=== PATIENT | female | born 1990 | race African-American/Black ===

== ENCOUNTER 2019-09-01 15:01 | Emergency (ER) | payer SELFPAY ==
--- NOTE | ~2019-09-01 | CT_ITS ---
EXAMINATION: CT abdomen pelvis w con EXAM DATE: 09/01/2019 16:46 INDICATION: Right lower quadrant pain. TECHNIQUE: Spiral CT of the abdomen and pelvis was performed following intravenous injection of 100 m L Omnipaque 350. Axial, coronal and sagittal images were reviewed. The dose-length product (DLP) fo r this examination was 311.66 mGy-cm. The exposure was tailored according to patient size (auto mA e xposure control), and iterative reconstruction (ASIR) was used as additional dose reduction technique . There is no prior study for comparison. FINDINGS: The liver, spleen, adrenal glands and pancreas are unremarkable. There are cholecystectomy clips. Portal and splenic veins are patent. Kidneys enhance symmetrically. There is no hydronephr osis. The uterus and ovaries are unremarkable, no adnexal mass. The bladder is unremarkable. Ther e is no retroperitoneal or pelvic lymphadenopathy. Probable identification of a normal appendix. No pericecal inflammation. The stomach and small capri l are unremarkable. There is expected amount of colonic stool. No free intraperitoneal gas. The heart is normal in size. There are no pericardial or pleural effusions. The lung bases are unremark able. The bones are unremarkable. IMPRESSION: 1. No acute intra-abdominal findings. Reviewed, dictated and finalized at location A.
[2019-09-01 15:05] VITALS: BP 105/84; PULSE 65; RESP 16; TEMP 37.6; O2SAT 99
[2019-09-01 15:32] LABS: Basophils Percent Auto 0.2 % (0.2-1.2); Hematocrit 40.3 % (37.0-47.0); Hemoglobin 13.9 g/dL (12.0-15.0); Immature Granulocyte Absolute 0.04 K/mm3 (0.00-0.031); Immature Granulocyte Percent A 0.4 % (0-0.5); Lymphocytes Absolute Auto 0.72 K/mm3 (0.9-3.2); Lymphocytes Percent Auto 7.1 % (18.3-44.2); Mean Corpuscular HGB Conc 34.5 g/dl (32-36); Mean Corpuscular Hemoglobin 31.7 pg (26-34); Mean Corpuscular Volume 91.8 fl (80-100); Mean Platelet Volume 11.7 fl (7.4-10.4); Monocytes Absolute Auto 0.7 K/mm3 (0.1-0.6); Monocytes Percent Auto 7.3 % (2.6-8.5); Neutrophils Absolute Auto 8.6 K/mm3 (1.3-6.7); Platelet Count Result 194 k/mm3 (150-375); Red Blood Count 4.39 M/mm3 (4.2-5.4); Red Cell Distribution Width 12.9 % (11.5-14.5); White Blood Count 10.1 K/mm3 (4.5-10.0)
--- NOTE | 2019-09-01 15:32 | ED.GENADULT ---
HPI - General Adult General Chief complaint: Nausea/Vomiting/Diarrhea Stated complaint: N/V, dizzy, abd pain Time Seen by Provider: 09/01/19 15:04 Source: patient Mode of arrival: ambulatory Limitations: no limitations History of Present Illness HPI narrative: Patient is a 28-year-old female who presents to emergency department who notes nausea and vomiting for the last week patient has been to urgent care notes that she was tested for COVID-19 denies sick contacts notes vomiting diarrhea off and on was seen at a urgent care and given Zofran and notes she continues to have symptoms patient denies similar occurrence in the past notes generalized aching of the abdomen symptoms Related Data Allergies Allergy/AdvReac Type Severity Reaction Status Date / Time No Known Allergies Allergy Verified 09/01/19 15:10 Review of Systems Review of Systems: All systems reviewed & are unremarkable except as noted in HPI and below PMFSH Social History Social History (Updated 09/01/19 @ 15:33 by Manfred Buck PA-C) Smoking status: Never smoker Gender identity (if verbalized by the patient): Female Exam Narrative: Exam Narrative: GENERAL: Well-appearing, well-nourished, and in no acute distress. HEAD: Normocephalic, atraumatic. EYES: PERRLA and EOMI. ENT: Nares clear, no rhinorrhea or epistaxis. Mucous membranes moist. Oropharynx without tonsillar hypertrophy exudate or other lesions. CHEST: Clear to auscultation. No respiratory distress. No wheezes rales or rhonchi HEART: Regular rate and rhythm. No murmur heard. Normal peripheral pulses. ABDOMEN: Soft, generalized tenderness, nondistended EXTREMITIES: Normal range of motion. No edema. SKIN: Warm, dry, no rash. NEURO: No focal deficits. Alert and oriented x3. Cranial nerves II through XII grossly intact PSYCH: Normal mood and affect. Course Course Emergency Course: Patient in the room aware of case findings treatment plan diagnosis tolerating p.o. intake with improvement with medications and fluids Vital Signs Vital signs: Vital Signs Temperature 99.6 F 09/01/19 15:05 Pulse Rate 65 09/01/19 15:05 Respiratory Rate 16 09/01/19 15:05 Blood Pressure 105/84 09/01/19 15:05 Pulse Oximetry 99 09/01/19 15:05 Temperature 99.6 F 09/01/19 15:05 Pulse Rate 65 09/01/19 15:05 Respiratory Rate 16 09/01/19 15:05 Blood Pressure 105/84 09/01/19 15:05 Pulse Oximetry 99 09/01/19 15:05 Medical Decision Making MDM Narrative Medical decision making narrative: Patient in the room at this time in no distress aware of case findings treatment plan diagnosis feeling somewhat better with medications tolerating p.o. intake will be discharged home provided with reasons to return afebrile nontoxic-appearing no distress Vital Signs Vital Signs: Vital Signs Temperature 99.6 F 09/01/19 15:05 Pulse Rate 65 09/01/19 15:05 Respiratory Rate 16 09/01/19 15:05 Blood Pressure 105/84 09/01/19 15:05 Pulse Oximetry 99 09/01/19 15:05 Temperature 99.6 F 09/01/19 15:05 Pulse Rate 65 09/01/19 15:05 Respiratory Rate 16 09/01/19 15:05 Blood Pressure 105/84 09/01/19 15:05 Pulse Oximetry 99 09/01/19 15:05 Lab Data Result diagrams: 09/01/19 15:27 09/01/19 15:27 Labs: Lab Results 09/01/19 09/01/19 Range/Units 15:27 15:27 WBC Pending RBC Pending Hgb Pending Hct Pending MCV Pending MCH Pending MCHC Pending RDW Pending Plt Count Pending MPV Pending Immature Gran % (Auto) Pending Neut % (Auto) Pending Lymph % (Auto) Pending Ford % (Auto) Pending Eos % (Auto) Pending Baso % (Auto) Pending Lymph # (Auto) Pending Ford # (Auto) Pending Eos # (Auto) Pending Baso # (Auto) Pending Abs Immat Gran (auto) Pending Absolute Neuts (auto) Pending Absolute Nucleated RBC Pending Nucleated RBC % Pending Sodium Pendin
[2019-09-01] MEDS: FAMOTIDINE 20 MG/2 ML VIAL IV PUSH (15:40)
[2019-09-01] MEDS: ONDANSETRON INJ 4 MG/2 ML VIAL IV PUSH (15:40)
[2019-09-01] MEDS: SODIUM CHLORIDE 0.9% IV 1,000 ML 999 ML IV CONT ×2 (15:40→16:50)
[2019-09-01 15:44] LABS: Alanine Aminotransferase 22 U/L (4-35); Albumin Level 5.3 g/dL (3.5-5.1); Alkaline Phosphatase 78 U/L (38-126); Aspartate Amino Transferase 36 U/L (14-36); Bilirubin,Total 2.1 mg/dL (0.2-1.3); Blood Urea Nitrogen 18 mg/dL (7-17); Calcium 10.2 mg/dL (8.4-10.2); Carbon Dioxide 23 mmol/L (22-30); Chloride 102 mmol/L (98-107); Estimated CRCL calculation 84 ml/min; Estimated Glomerular Filt Rate > 60; Glucose 116 mg/dL (65-105); Lipase 119 U/L (23-300); Potassium 3.6 mmol/L (3.4-5.0); Sodium 137 mmol/L (137-145)
[2019-09-01] MEDS: PROMETHAZINE HCL 25 MG/ML AMPUL 12.5 MG IV PUSH (16:23)
[2019-09-01 16:29] LABS: Add Urine Microscopic? YES; Appearance Urine Cloudy (Clear); Bacteria Urine 2+ /hpf; Bilirubin Urine Negative (Negative); Blood Urine Negative (Negative); Color Urine Amber (Yellow); Glucose Urine UA 1+ mg/dL (Negative); Ketones Urine 1+ mg/dL (Negative); Leukocyte Esterase Ur Negative LEU/UL (Negative); Mucus Urine Heavy /lpf; Nitrate Urine Negative (Negative); Protein Urine 2+ mg/dL (Negative); RBC Urine 0-2 /hpf (0-2); Squamous Epithelial Cell Urine Many /hpf (Few); Urobilinogen Urine Negative mg/dL (<2.0)
[2019-09-01 16:31] LABS: Specific Grav Ur 1.032 (1.001-1.035)
[2019-09-01] MEDS: LORAZEPAM INJ 2 MG/ML VIAL 1 MG IV PUSH (17:48)
[2019-09-01 17:50] VITALS: BP 113/80; PULSE 59; RESP 16
== END 2019-09-01 18:51 | disposition home or self-care (01) ==
PROVIDERS: Emergency Medicine Emergency Medical Services; Emergency Provider Emergency Medicine
DX: R10.9 Unspecified abdominal pain (principal)
CPT/HCPCS: 36415; 74177; 80053; 81001; 81025; 83690; 85025; 87077; 87086; 87088; 87186; 96361; 96374; 96375; 99284; J2060; J2405; J2550; J7030; Q9967